=== PATIENT | male | born 1990 | race Caucasian/White ===

== ENCOUNTER → 2016-05-16 | Outpatient (CLI) | payer OTHER ==
[~2016-05-16] MED LIST: AUGMENTIN PO; DARVOCET-N 1001 TAB PO; IBUPROFEN PO
--- NOTE | ~2016-05-16 | CR265 ---
[facility] A Service of [facility] RADIOLOGY TEXT RESULTS PATIENT: FRANCES KLEIN LOCATION: [facility] #: [id number] : [birth year] UNIT #: [id number] AGE: [address]: Wilmer Haas MD SEX: M ORDER DR: [id number] [facility] [address] [place], [place] [address] [id number] O MR#: [id number] Acc #: [id number] NAME: FRANCES KLEIN : 1990 SEX: M STUDY DATE/TIME: 05/16/2016 10:59 UNIT: [facility] ROOM: STUDY DESCRIPTION: CR Upper GI Series Wo KUB Attending Physician: Wilmer Haas M.D. Referring Physician: Wilmer Haas M.D. Ordering Physician: Wilmer Haas M.D. Primary Care Physician: Wilmer Haas M.D. MEDICAL IMAGING REPORT This report is preliminary unless electronic signature is present EXAM Upper GI series, 05/16/16 INDICATIONS Abdominal pain for the last 3 months. FINDINGS Air-contrast upper GI series was obtained. Fluoro time was 1.9 minutes. 33 images were obtained. No comparison. Esophageal motility is normal. No rings or strictures. There are no esophageal mucosal lesions seen to suggest esophagitis. There is no hiatal hernia. Gastric mucosa is normal without fold thickening or evidence of ulceration. Duodenal bulb distends normally and does not appear scarred or ulcerated. Duodenal C-sweep is normal. There is prompt emptying of the stomach. IMPRESSION Normal air-contrast upper GI series. Dictated by... Oscar Preston Jr., M.D. THIS IS AN ELECTRONICALLY VERIFIED REPORT Oscar Preston Jr., M.D. at 05/16/2016 3:54 PM ROYCE/sravanthi TD: 05/16/2016 13:15 JOB #: [id number] MEDICAL IMAGING REPORT [facility] A Service of [facility] RADIOLOGY TEXT RESULTS PATIENT: FRANCES KLEIN LOCATION: [facility] #: [id number] : [birth year] UNIT #: [id number] AGE: [address]: Wilmer Hasa MD SEX: M ORDER DR: Page 1 of 1 COPY
== END | disposition home or self-care (01) ==
LOC: CRAD 10:32
DX: R10.13 Epigastric pain (principal)
CPT/HCPCS: 74240